=== PATIENT | male | born 1985 | race Two or more races ===

== ENCOUNTER 2021-09-20 10:05 | Emergency (ER) | payer SELFPAY ==
[~2021-09-20] VITALS: Ht 180.3 cm; Wt 74.8 kg
[2021-09-20 11:00] VITALS: BP 145/94
--- NOTE | 2021-09-20 12:09 | NUR ---
Patient given written and verbal discharge instructions. Patient verbalizes understanding of instructions. Patient is ambulatory with steady gait. Refuses offer of [facility] placement. Patient given list of available shelters in surrounding area.
== END 2021-09-20 12:12 | disposition home or self-care (01) ==
LOC: ER 10:06
DX: F15.10 Other stimulant abuse, uncomplicated (principal); F17.200 Nicotine dependence, unspecified, uncomplicated; Z59.00 Homelessness unspecified; Z02.89 Encounter for other administrative examinations